=== PATIENT | male | born 1955 | race Caucasian/White ===

== ENCOUNTER 2018-06-18 02:57 | Outpatient (CLI) | payer OTHER, SELFPAY ==
[2018-06-18 11:39] LABS: Hemoglobin A1C 6.7 % (4.5-6.2)
== END 2018-06-18 03:17 ==
PROVIDERS: PCP Family Medicine; Visit Provider Family Medicine
DX: E11.39 Type 2 diabetes mellitus with other diabetic ophthalmic complication (principal); E11.65 Type 2 diabetes mellitus with hyperglycemia
CPT/HCPCS: 36415; 83036

== ENCOUNTER 2018-09-30 01:50 | Outpatient (CLI) | payer OTHER, SELFPAY ==
[2018-10-01 09:53] LABS: Hemoglobin A1C 7.3 % (4.5-6.2)
== END 2018-09-30 02:10 ==
PROVIDERS: PCP Family Medicine; Visit Provider Family Medicine
DX: E11.9 Type 2 diabetes mellitus without complications (principal)
CPT/HCPCS: 36415; 83036

== ENCOUNTER 2020-06-14 15:06 | Outpatient (REF) | payer MEDICARE, SELFPAY ==
[2020-06-14 21:57] LABS: Anion Gap 8.6 mmol/L (3-11); BUN 22 mg/dL (7-18); CO2 28.4 mmol/L (21.0-32.0); CREATININE 0.93 mg/dL (0.70-1.30); Calcium 9.4 mg/dL (8.5-10.1); Calculated LDL 72 mg/dL (<100); Chloride 100 mmol/L (98-107); Cholesterol 141 mg/dL (<200); Glucose 307 mg/dL (74-106); HDL Cholesterol 62 mg/dL (40-60); Potassium 4.7 mmol/L (3.5-5.1); Sodium 137 mmol/L (136-145); Triglyceride 37 mg/dL (<150)
== END 2020-06-14 15:26 ==
LOC: LBN 15:06
PROVIDERS: PCP Nurse Practitioner Family; Visit Provider Nurse Practitioner Family
DX: E11.9 Type 2 diabetes mellitus without complications (principal); E78.5 Hyperlipidemia, unspecified
CPT/HCPCS: 80048; 80061; 83036

== ENCOUNTER 2020-06-20 09:48 | Outpatient (REF) | payer MEDICARE, SELFPAY ==
[2020-06-20 22:53] LABS: PSA, Screening 0.6 ng/mL (0.0-4.5)
== END 2020-06-20 10:08 ==
LOC: LBN 09:48
PROVIDERS: PCP Nurse Practitioner Family; Visit Provider Emergency Medicine
DX: N40.0 Benign prostatic hyperplasia without lower urinary tract symptoms (principal)
CPT/HCPCS: 84153

== ENCOUNTER 2021-02-22 13:00 | Outpatient (REF) | payer MEDICARE, SELFPAY ==
[2021-02-22 13:49] LABS: COMMENT (LAB VIEW ONLY) 48.82 mg/dL; Microalb ug/mg Crea 7.6 ug/mg Cr
[2021-02-22 21:58] LABS: Hemoglobin A1C 7.7 % (<5.7)
[2021-02-22 22:32] LABS: Anion Gap 8.9 mmol/L (3-11); BUN 22 mg/dL (7-18); CO2 25.1 mmol/L (21.0-32.0); Calcium 9.1 mg/dL (8.5-10.1); Calculated LDL 70 mg/dL (<100); Chloride 103 mmol/L (98-107); Cholesterol 132 mg/dL (<200); Glucose 234 mg/dL (74-106); HDL Cholesterol 57 mg/dL (40-60); Sodium 137 mmol/L (136-145); Triglyceride 28 mg/dL (<150)
== END 2021-02-22 13:01 | disposition home or self-care (01) ==
LOC: LBN 13:00
PROVIDERS: PCP Nurse Practitioner Family; Visit Provider Emergency Medicine
DX: I10 Essential (primary) hypertension (principal); E11.9 Type 2 diabetes mellitus without complications
CPT/HCPCS: 80048; 80061; 82043; 82570; 83036

== ENCOUNTER 2021-07-09 01:38 | Outpatient (CLI) | payer MEDICARE, SELFPAY ==
[2021-07-09 13:39] LABS: Hemoglobin A1C 7.4 % (<5.7)
== END 2021-07-09 01:39 | disposition home or self-care (01) ==
PROVIDERS: PCP Nurse Practitioner Family; Visit Provider Nurse Practitioner Family
DX: E11.9 Type 2 diabetes mellitus without complications (principal)
CPT/HCPCS: 36415; 83036

== ENCOUNTER 2022-07-02 03:28 | Outpatient (CLI) | payer MEDICARE, SELFPAY ==
[2022-07-02 12:18] LABS: HCT 40.8 % (40.0-50.0); HGB 13.7 g/dL (13.5-17.5); MCH 29.7 pg (27.0-33.0); MCHC 33.6 % (32.0-36.0); MCV 88 fL (80-95); MPV 10.5 fL (8.0-11.0); Platelet Count 249 10^3/uL (130-400); RBC 4.62 10^6/uL (4.36-5.78); RDW 14.3 % (11.8-14.1); RDW-SD 46.5 fL
[2022-07-02 12:37] LABS: Anion Gap 7.7 mmol/L (3-11); BUN 16 mg/dL (7-18); CO2 28.3 mmol/L (21.0-32.0); CREATININE 0.9 mg/dL (0.70-1.30); Chloride 104 mmol/L (98-107); Estimated GFR 93.61 (mL/min/1.73m2); Glucose 144 mg/dL (74-106); Potassium 3.7 mmol/L (3.5-5.1); Sodium 140 mmol/L (136-145)
== END 2022-07-02 03:29 | disposition home or self-care (01) ==
PROVIDERS: PCP Nurse Practitioner Family; Visit Provider Nurse Practitioner Family
DX: E11.319 Type 2 diabetes mellitus with unspecified diabetic retinopathy without macular edema (principal); N52.9 Male erectile dysfunction, unspecified
CPT/HCPCS: 36415; 80048; 85027

== ENCOUNTER 2023-06-23 02:54 | Outpatient (CLI) | payer MEDICARE, SELFPAY ==
[2023-06-23 13:02] LABS: ALT 34 U/L (16-63); AST 23 U/L (15-37); Albumin 3.9 g/dL (3.4-5.0); Alkaline Phosphatase 94 U/L (46-116); Anion Gap 9.5 mmol/L (3-11); BUN 14 mg/dL (7-18); Bilirubin, Total 1.5 mg/dL (0.2-1.0); CO2 26.5 mmol/L (21.0-32.0); Calcium 9.6 mg/dL (8.5-10.1); Calculated LDL 61 mg/dL (<100); Chloride 104 mmol/L (98-107); Cholesterol 129 mg/dL (<200); Estimated GFR 81.98 (mL/min/1.73m2); Glucose 125 mg/dL (74-106); HDL Cholesterol 58 mg/dL (40-60); Sodium 140 mmol/L (136-145); Total Protein 7.4 g/dL (6.4-8.2); Triglyceride 51 mg/dL (<150)
[2023-06-23 13:15] LABS: Hemoglobin A1C 5.8 % (<5.7)
== END 2023-06-23 02:55 | disposition home or self-care (01) ==
LOC: LOS 02:54
PROVIDERS: PCP Nurse Practitioner Family; Visit Provider Nurse Practitioner Family
DX: E11.9 Type 2 diabetes mellitus without complications (principal); Z00.00 Encounter for general adult medical examination without abnormal findings
CPT/HCPCS: 36415; 80053; 80061; 83036

== ENCOUNTER 2023-12-22 04:58 | Outpatient (CLI) | payer MEDICARE, SELFPAY ==
[2023-12-22 12:39] LABS: Hemoglobin A1C 6.4 % (<5.7)
[2023-12-23 10:41] LABS: PSA, Screening 0.7 ng/mL (<=4.5)
[2023-12-23 11:19] LABS: Hepatitis C Ab w Rflx HCV PCR Negative (Negative)
== END 2023-12-22 04:59 | disposition home or self-care (01) ==
LOC: LOS 04:59
PROVIDERS: PCP Nurse Practitioner Family; Visit Provider Nurse Practitioner Family
DX: Z12.5 Encounter for screening for malignant neoplasm of prostate (principal); Z00.00 Encounter for general adult medical examination without abnormal findings; E11.319 Type 2 diabetes mellitus with unspecified diabetic retinopathy without macular edema
CPT/HCPCS: 36415; 84153; 86803; 83036

== ENCOUNTER 2023-12-28 15:18 | Outpatient (REF) | payer MEDICARE, SELFPAY ==
[2023-12-28 14:01] LABS: Microalb ug/mg Crea 3.8 ug/mg Cr
== END 2023-12-28 15:19 | disposition home or self-care (01) ==
LOC: LBN 15:18
PROVIDERS: PCP Nurse Practitioner Family; Visit Provider Nurse Practitioner Family
DX: E11.319 Type 2 diabetes mellitus with unspecified diabetic retinopathy without macular edema (principal)
CPT/HCPCS: 82043; 82570

== ENCOUNTER 2024-08-02 01:01 | Outpatient (CLI) | payer MEDICARE, SELFPAY ==
--- NOTE | 2024-08-02 07:45 | DI.US_ITS ---
Exam(s) US AAA SCREENING EXAM: US AAA SCREENING CLINICAL HISTORY: AAA screening,former smoker, peripheral vascular disease,z13.6 COMPARISON: No exams were available for comparison FINDINGS: Examination is limited by overlying bowel gas. Abdominal Aorta: Proximal: The proximal abdominal aorta cannot be seen secondary to overlying bowel gas. Mid: The mid abdominal aorta was obscured by overlying bowel gas. Distal: 1.8 x 1.9 cm Iliac's: Right: 1.1 x 1.1 cm Left: 1.1 x 1.2 cm No significant atherosclerotic disease is seen. IMPRESSION: 1. Examination was limited. The proximal and mid abdominal aorta could not be visualized due to over lying bowel gas. 2. The distal abdominal aorta shows no evidence of an aneurysm. DATA REPOSITORY:
== END 2024-08-02 01:21 ==
LOC: DI 01:01
PROVIDERS: PCP Nurse Practitioner Family; Visit Provider Nurse Practitioner Family
DX: Z13.6 Encounter for screening for cardiovascular disorders (principal); Z87.891 Personal history of nicotine dependence; E13.51 Other specified diabetes mellitus with diabetic peripheral angiopathy without gangrene
CPT/HCPCS: 76706

== ENCOUNTER 2024-08-09 02:00 | Outpatient (CLI) | payer MEDICARE, SELFPAY ==
[2024-08-09 12:46] LABS: ALT 26 U/L (16-63); AST 24 U/L (15-37); Alkaline Phosphatase 96 U/L (46-116); Anion Gap 10.6 mmol/L (3-11); BUN 19 mg/dL (7-18); Bilirubin, Total 1.67 mg/dL (0.2-1.0); CO2 26.4 mmol/L (21.0-32.0); Calcium 9.4 mg/dL (8.5-10.1); Chloride 103 mmol/L (98-107); Estimated GFR 81.47 (mL/min/1.73m2); Glucose 71 mg/dL (74-106); Potassium 3.9 mmol/L (3.5-5.1); Sodium 140 mmol/L (136-145); TSH (W/Ref FT4) 1.79 uIU/mL (0.36-3.74); Total Protein 7.7 g/dL (6.4-8.2)
[2024-08-09 18:54] LABS: HIV-1/2 Ag & Ab Screen Negative (Negative)
[2024-08-09 19:15] LABS: HBs Antibody, Quant <3.1 mIU/mL (See Note); Hep B Surface Ab Negative (See Note); Hepatitis B Core Antibody Negative (Negative); Hepatitis B Surface Antigen Negative (Negative)
== END 2024-08-09 02:01 | disposition home or self-care (01) ==
LOC: LOS 02:00
PROVIDERS: PCP Nurse Practitioner Family; Visit Provider Nurse Practitioner Family
DX: E11.319 Type 2 diabetes mellitus with unspecified diabetic retinopathy without macular edema (principal); Z00.00 Encounter for general adult medical examination without abnormal findings; Z11.59 Encounter for screening for other viral diseases; Z11.4 Encounter for screening for human immunodeficiency virus [HIV]
CPT/HCPCS: 36415; 80053; 86704; 86706; 87340; 87389; 84443

== ENCOUNTER 2024-08-22 02:25 | Outpatient (CLI) | payer MEDICARE, SELFPAY ==
[2024-08-22 12:30] LABS: HCT 45.1 % (40.0-50.0); HGB 14.8 g/dL (13.5-17.5); MCHC 32.8 % (32.0-36.0); MCV 88 fL (80-95); MPV 10.2 fL (8.0-11.0); Platelet Count 249 10^3/uL (130-400); RBC 5.11 10^6/uL (4.36-5.78); RDW 13.6 % (11.8-14.1); RDW-SD 44.2 fL; Reticulocyte 0.8 % (0.5-2.4); WBC 4.68 10^3/uL (4.4-10.8)
[2024-08-22 12:34] LABS: Bilirubin, Direct 0.3 mg/dL (0.0-0.2)
[2024-08-22 12:36] LABS: ALT 28 U/L (16-63); AST 23 U/L (15-37); Albumin 3.8 g/dL (3.4-5.0); Alkaline Phosphatase 103 U/L (46-116); Bilirubin, Direct 0.3 mg/dL (0.0-0.2); Bilirubin, Total 1.43 mg/dL (0.2-1.0); Total Protein 7.2 g/dL (6.4-8.2)
== END 2024-08-22 02:26 | disposition home or self-care (01) ==
LOC: LOS 02:25
PROVIDERS: PCP Nurse Practitioner Family; Visit Provider Nurse Practitioner Family
DX: E80.6 Other disorders of bilirubin metabolism (principal)
CPT/HCPCS: 36415; 80076; 85027; 82248; 85045

== ENCOUNTER 2025-06-30 00:51 | Outpatient (CLI) | payer MEDICARE, SELFPAY ==
[2025-06-30 15:06] LABS: Anion Gap 7.5 mmol/L (3-11); BUN 20 mg/dL (7-18); CO2 27.5 mmol/L (21.0-32.0); Calcium 9.2 mg/dL (8.5-10.1); Chloride 102 mmol/L (98-107); Cholesterol 129 mg/dL (<200); Glucose 200 mg/dL (74-106); HDL Cholesterol 51 mg/dL (>or=40); Potassium 3.8 mmol/L (3.5-5.1); Sodium 137 mmol/L (136-145)
[2025-06-30 15:13] LABS: Hemoglobin A1C 6.3 % (<5.7)
== END 2025-06-30 00:52 | disposition home or self-care (01) ==
LOC: LOS 00:51
PROVIDERS: PCP Nurse Practitioner Family; Visit Provider Nurse Practitioner Family
DX: E11.319 Type 2 diabetes mellitus with unspecified diabetic retinopathy without macular edema (principal); E78.5 Hyperlipidemia, unspecified
CPT/HCPCS: 36415; 80048; 80061; 83036